=== PATIENT | female | born 1985 | race African-American/Black ===

== ENCOUNTER 2017-12-01 23:56 | Emergency (ER) | payer SELFPAY ==
[2017-12-01 23:57] VITALS: BP 134/81; PULSE 96; RESP 18; TEMP 36.3; O2SAT 96; BMI 29.0
[2017-12-02 00:09] VITALS: O2SAT 97
--- NOTE | 2017-12-02 00:14 | ED.VISSUMM ---
- ER Visit Summary Date of Service: 12/02/17 Chief Complaint: Shortness of breath History of Present Illness: The patient is a 32 F presenting with shortness of breath, wheezing. Patient has a history of asthma. She states she has been using her inhaler but has almost run out. She has had symptoms for the past 3 days. She has a productive cough. Denies fever. Denies sick contacts. She does not currently have a primary care physician. She does smoke. No other complaints. Physical Examination: Vitals are stable. Patient is afebrile. Alert no acute distress. HEENT exam is unremarkable. Neck is supple. Lungs are wheezing diffusely. No respiratory distress Heart is regular rate and rhythm. Abdomen is soft nontender nondistended. Extremities are unremarkable. Skin is warm and dry. Remainder of exam is unremarkable. Emergency Department Course and Treatment: Patient was given albuterol, Atrovent aerosols. She is given prednisone p.o. Chest x-ray shows no acute process. On repeat evaluation, her lungs are clear to auscultation. She is feeling improved. She is given an albuterol MDI and prescription for prednisone. She is given Dr. Mooney machine stone polisher apprentice for no doc for follow-up. She is advised to return to the ED for worsening complaints. Disposition: Discharge home Impression: Asthma exacerbation This note was generated with [employer] dictation software. It may contain incorrect words, spelling, and punctuation that were not noted in review of the chart prior to signing ED Disposition - Plan for ED Patient: Disposition: Home or Assisted Living Chief Complaint: Asthma Instructions: Understanding Asthma Prescriptions: Prednisone [Deltasone] 40 mg PO DAILY #10 tablet Referrals: Norma Mooney DO [NON-STAFF] - Care Physician,No Primary [Primary Care Provider] -
--- NOTE | 2017-12-02 00:15 | RAD_ITS ---
STUDY: X-RAY CHEST REASON FOR EXAM: Female, 32 years old. Wheezing TECHNIQUE: 1 view COMPARISON: None. FINDINGS: The lungs are clear and expanded. There is no demonstrated pleural abnormality. Normal size heart. Normal mediastinum and esau. Normal visualized pulmonary arteries. Normal visualized aortic arch and descending thoracic aorta. Normal visualized thoracic spine. Normal visualized ribs, clavicles, and shoulders. There is no demonstrated abnormality of the visualized soft tissue structures of the upper abdomen. RAD/Chest 1 View (Portable) IMPRESSION: Normal x-ray examination of the chest. No acute findings in the lungs Electronically Signed: Benito Romo, at 1:13 EDT Tel , Service support ,
[2017-12-02] MEDS: Ipratropium/Albuterol Sulfate 3 ML AMPUL.NEB INHALATION (00:22)
[2017-12-02 00:23] VITALS: PULSE 111; RESP 20
[2017-12-02] MEDS: Albuterol 2.5 MG/3 ML VIAL.NEB. INHALATION ×3 (00:23→00:43)
[2017-12-02] MEDS: predniSONE 20 MG Tablet 60 MG PO (01:06)
--- NOTE | 2017-12-02 01:25 | ED.DEP ---
ED Disposition - Plan for ED Patient: Chief Complaint: Asthma Instructions: Understanding Asthma Prescriptions: Prednisone [Deltasone] 40 mg PO DAILY #10 tablet Referrals: Care Physician,No Primary [Primary Care Provider] - Norma Mooney DO [NON-STAFF] -
[2017-12-02 01:28] VITALS: PULSE 101; RESP 22; O2SAT 99
== END 2017-12-02 01:32 | disposition home or self-care (01) ==
LOC: ED 12-02 00:56
PROVIDERS: Emergency Provider Emergency Medicine
DX: J45.901 Unspecified asthma with (acute) exacerbation (principal); Z72.0 Tobacco use
CPT/HCPCS: 71045; 94640; 99283

== ENCOUNTER 2018-03-15 20:46 | Emergency (ER) | payer MEDICAID, SELFPAY ==
[2018-03-15 20:48] VITALS: BP 97/63; PULSE 86; RESP 15; TEMP 36.8; O2SAT 97; BMI 31.2
[2018-03-15 21:53] LABS: Color, Urine Yellow (Yellow); Glucose, Dipstick Normal (Normal); Ketone-Dipstick Negative (Negative); Leukocyte Esterase-Dipstick 500 /ul (Negative); Mucous, Urine 0 SEEN /hpf (<or=2+); Nitrite-Dipstick Negative (Negative); Occult Blood-Urine 10 /ul (Negative); Protein-Dipstick 15 mg/dl (Negative); Red Blood Cells-Urine 0 SEEN /hpf (0-5); Urine Bilirubin Dipstick Negative (Negative); Urine Clarity Clear (Clear); Urine Urobilinogen Normal (Normal)
[2018-03-15 21:59] LABS: Squamous Epithelial Cells - UA 25-50 SEEN /hpf (5-10); White Blood Cells 10-25 SEEN /hpf (0-5)
[2018-03-15 22:00] LABS: Bacteria 1+ /hpf (None Seen)
[2018-03-15 22:04] LABS: Absolute Lymphocyte Count 2.75 X10^3/ul (0.83-4.51); Absolute Neutrophil Count 6.3 X10^3/uL (2.0-7.7); Basophil# 0.02 X10^3/uL; Basophil% 0.2 % (0-1); Eosinophil# 0.07 X10^3/uL; Eosinophils% 0.7 % (0-5); Hematocrit 32.7 % (37-47); Hemoglobin 11.2 g/dl (12.0-15.0); Lymphocyte # 2.75 X10^3/ul (4.0); Lymphocyte % 28.6 % (19-41); Mean Corp Hgb Conc 34.3 g/gl (32-36); Mean Corpuscular Hgb 29.1 pg (27.0-32.0); Mean Corpuscular Volume 84.9 fL (81-99); Mean Platelet Vol. 9.4 fl (6.2-12.0); Monocyte# 0.45 X10^3/uL; Monocyte% 4.7 % (0-10); Neutrophil # 6.32 X10^3/uL (2.7-7.7); Neutrophil % 65.7 % (47-70); POSITIVE COUNT NO; POSITIVE DIFFERENTIAL NO; POSITIVE MORPHOLOGY NO; Platelet Count 251 K/mm3 (150-450); RBC Distribution Width CV 14.5 % (11.6-14.6); RBC Distribution Width SD 45.1 fl (35.1-43.9); Red Blood Count 3.85 M/mm3 (4.2-5.4); White Blood Count 9.6 K/mm3 (4.4-11.0)
[2018-03-15 22:25] LABS: Anion Gap 9 (5-15); BUN 12 mg/dL (7-18); BUN/Creat Ratio 13.9 RATIO (10-20); Calcium,Total 8.4 mg/dL (8.5-10.1); Chloride 106 mmol/L (98-107); Creatinine, Serum 0.86 mg/dL (0.55-1.02); EST Glomerular Filtration Rate 80 mL/min (>60); Est Glom Filt Rate - Afr Amer 96 mL/min (>60); Estimated Creatinine Clearance 89.63 ml/min; Glucose 76 mg/dL (74-106); Potassium 3.7 mmol/L (3.5-5.1); Sodium Level 136 mmol/L (136-145)
--- NOTE | 2018-03-15 22:31 | ED.VISSUMM ---
- ER Visit Summary Date of Service: 03/15/18 Chief Complaint: Syncopal episodes History of Present Illness: The patient is a 32 F who is 19 weeks who presents for syncopal episodes over the last 6 days. Patient states 6 days ago she was walking in the heat and had a syncopal episode. 911 was called and she was evaluated but not transported. She is felt better since then and is been trying to drink plenty of fluids. Today while walking she became dizzy, again walking in the heat, but did not have an actual syncopal episode this time. She came into the emergency department for evaluation since it is happened twice in the last week. She has a dull intermittent headache for the last week. Currently is a 3 out of 10. Denies fever, vision changes, vertigo, chest pain, shortness of breath, abdominal pain, nausea or vomiting, weakness or paresthesias or other complaints. No medical problems other than current . Physical Examination: Vital signs: afebrile, blood pressure 97/63, no hypoxia on room air General: well nourished, well developed, in no distress Skin: warm, dry, no rash, no pallor HEENT: normocephalic and atraumatic; PERRL, EOMI, moist mucous membranes Cardiovascular: regular rate and rhythm without murmurs, no peripheral edema, 2+ pulses all distal extremities Respiratory: No increased work of breathing, lungs are clear to auscultation bilaterally, no rales, rhonchi or wheezing Abdominal: Abdomen is soft, nontender with normoactive bowel sounds, no guarding or rebound, no masses MSK: Moves all extremities, no deformities, normal strength Neuro: Awake and alert, oriented ?4. No facial droop, sensation and motor function intact and symmetric Test Results: Abnormal Lab Results 03/15/18 03/15/18 03/15/18 21:15 21:40 21:40 WBC 9.6 RBC 3.85 L Hgb 11.2 L Hct 32.7 L MCV 84.9 MCH 29.1 MCHC 34.3 RDW 14.5 RDW Differential 45.1 H Plt Count 251 MPV 9.4 Immature Gran % (Auto) 0.100 Neut % (Auto) 65.7 Lymph % (Auto) 28.6 Gilmer % (Auto) 4.7 Eos % (Auto) 0.7 Baso % (Auto) 0.2 Absolute Neuts (auto) 6.3 Absolute Lymphs (auto) 2.75 Total Counted Not Reportable Sodium 136 Potassium 3.7 Chloride 106 Carbon Dioxide 21.0 Anion Gap 9 BUN 12 Creatinine 0.86 Estim Creat Clear Calc 89.63 Est GFR (MDRD) Af Amer 96 Est GFR (MDRD) Non-Af 80 BUN/Creatinine Ratio 13.9 Glucose 76 Calcium 8.4 L Total Bilirubin 0.40 AST 21 ALT 15 Alkaline Phosphatase 60 Total Protein 6.7 Albumin 2.9 L Globulin 3.8 Albumin/Globulin Ratio 0.8 L Urine Color Yellow Urine Clarity Clear Urine pH 6.0 Ur Specific Harwood 1.020 Urine Protein 15 H Urine Glucose (UA) Normal Urine Ketones Negative Urine Occult Blood 10 H Urine Nitrite Negative Urine Bilirubin Negative Urine Urobilinogen Normal Ur Leukocyte Esterase 500 H Urine RBC 0 SEEN Urine WBC 10-25 SEEN Ur Squamous Epith Cells 25-50 SEEN Urine Bacteria 1+ Urine Mucus 0 SEEN Emergency Department Course and Treatment: Lab work was obtained to evaluate for electrolyte derangements, anemia, UTI, or any signs of hepatic or renal derangement. IV fluids were to be given, however the IV did not flow well. The patient did not wish an additional IV attempt, and thus using shared decision making, she opted for oral hydration while waiting for the remainder of her lab work. Patient had no electrolyte derangements, significant anemia or leukocytosis. Patient's urine was grossly contaminated and thus was not diagnostic of any infection or asymptomatic bacteriuria that would require treatment. Patient received oral hydration. On reevaluation she stated she felt very well and was ready for discharge. We discussed hydration and heat precautions. Patient will return if any further concerns. Discharged home. Treatment Plan: [] Disposition: [] Impression: Syncopal episode, second trimester , dehydration This note was generated with BlackJet dictation software. It may contain incorrect words, spelling, and punctuation that were not noted in review of the chart prior to signing ED Disposition - Plan for ED Patient: Disposition: Home or Assisted Living Chief Complaint: Dizziness Instructions: ED Dehydration, ED Fainting Unkn Cause Referrals: Lurdes Mcmahon MD [Primary Care Provider] - 1-2 Days if not improving Additional Instructions: Please stay out of the heat as much as possible. Drink plenty of fluids to stay hydrated. If you continue to have dizziness or if you pass out again, please return to the emergency department for another evaluation. If you have any worsening of your condition or any new concerning symptoms, please return immediately to the emergency department for another evaluation.
[2018-03-15 23:07] LABS: ALB/GLOB Ratio 0.8 RATIO (0.9-2.4); AST(SGOT) 21 U/L (15-37); Alanine Aminotransfer ALT/SGPT 15 U/L (13-56); Albumin, Serum 2.9 g/dL (3.2-5.0); Alkaline Phosphatase 60 U/L (45-117); Globulin 3.8 g/dL (2.2-4.2); Protein, Total 6.7 g/dL (6.4-8.2)
--- NOTE | 2018-03-15 23:30 | ED.DEP ---
ED Disposition - Plan for ED Patient: Disposition: Home or Assisted Living Chief Complaint: Dizziness Instructions: ED Fainting Unkn Cause, ED Dehydration Referrals: Lurdes Mcmahon MD [Primary Care Provider] - 1-2 Days if not improving Additional Instructions: Please stay out of the heat as much as possible. Drink plenty of fluids to stay hydrated. If you continue to have dizziness or if you pass out again, please return to the emergency department for another evaluation. If you have any worsening of your condition or any new concerning symptoms, please return immediately to the emergency department for another evaluation.
[2018-03-15 23:43] VITALS: BP 107/79; PULSE 77; PULSE 79; RESP 16; O2SAT 100
== END 2018-03-15 23:44 | disposition home or self-care (01) ==
PROVIDERS: Emergency Provider Emergency Medicine; Family Provider Obstetrics & Gynecology Gynecology; PCP Obstetrics & Gynecology Gynecology
DX: O99.89 Other specified diseases and conditions complicating pregnancy, childbirth and the puerperium (principal); R55 Syncope and collapse; E86.0 Dehydration; Z3A.19 19 weeks gestation of pregnancy
CPT/HCPCS: 80053; 81001; 85025; 99282; A4216

== ENCOUNTER 2018-04-19 17:20 | Emergency (ER) | payer MEDICAID, SELFPAY ==
[2018-04-19 17:21] VITALS: BP 116/67; PULSE 76; RESP 16; TEMP 36.7; O2SAT 98; BMI 30.2
[2018-04-19] MEDS: predniSONE 20 MG Tablet 40 MG PO (17:52)
[2018-04-19 18:27] VITALS: PULSE 86; RESP 18; O2SAT 97
[2018-04-19] MEDS: Albuterol 2.5 MG/3 ML VIAL.NEB. INHALATION (18:27)
[2018-04-19] MEDS: Ipratropium/Albuterol Sulfate 3 ML AMPUL.NEB INHALATION (18:27)
--- NOTE | 2018-04-19 18:46 | ED.DCSUM_ITS ---
- ER Visit Summary Date of Service: 04/19/18 Chief Complaint: [Dyspnea] History of Present Illness: The patient is a 32 F [presents the emergency department complaint of dyspnea that started about a week and a half ago. Patient states that she feels kind of congested in her face and sinuses. Patient is 5 months . Patient states she has been using her inhaler but not getting much relief and then her symptoms return. Patient coughing occasionally but very little coming up everything is clear. She has had no fever. She denies any chest pain. Patient does have a history of asthma.] Patient denies any abdominal pain. Patient feeling the baby move. Physical Examination: [HEENT-PERRLA, EOMI. Cranial nerves II through XII grossly intact. TMs clear. Mucous membranes moist. No adenopathy. Cardiovascular-regular rate and rhythm without murmur or ectopy Lungs-diminished breath sounds bilaterally. Patient has expiratory wheezes throughout all lung [place]. There is mild tachypnea. No accessory muscle use or retractions. No conversational dyspnea. Abdomen-normoactive bowel sounds, soft, nontender, no rebound or rigidity, no peritoneal signs. Extremities-intact ?4, normal range of motion, normal pulses, atraumatic] Test Results: [None indicated] Emergency Department Course and Treatment: [Patient was given a DuoNeb aerosol and was started on prednisone. Patient felt much improved after treatment. 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 Patient to return if increasing shortness of breath or condition should worsen anyway. Impression: [Asthma exacerbation] This note was generated with [employer] dictation software. It may contain incorrect words, spelling, and punctuation that were not noted in review of the chart prior to signing ED Disposition - Plan for ED Patient: Chief Complaint: Shortness of Breath Referrals: Care Physician,No Primary [Primary Care Provider] -
--- NOTE | 2018-04-19 18:46 | ED.DEP ---
ED Disposition - Plan for ED Patient: Chief Complaint: Shortness of Breath Instructions: ED Reactive Airway Disease Prescriptions: Prednisone [Deltasone] 20 mg PO BID #10 tab Referrals: Care Physician,No Primary [Primary Care Provider] - Lurdes Mcmahon MD [STAFF PHYSICIAN] - 3-5 Days
[2018-04-19 18:59] VITALS: BP 136/81; PULSE 95; RESP 18; O2SAT 100
== END 2018-04-19 19:05 | disposition home or self-care (01) ==
LOC: ED 17:40
PROVIDERS: Emergency Provider Emergency Medicine
DX: O99.519 Diseases of the respiratory system complicating pregnancy, unspecified trimester (principal); J45.901 Unspecified asthma with (acute) exacerbation; O99.330 Smoking (tobacco) complicating pregnancy, unspecified trimester; F17.200 Nicotine dependence, unspecified, uncomplicated; Z3A.00 Weeks of gestation of pregnancy not specified
CPT/HCPCS: 94640; 94664; 99282

== ENCOUNTER 2019-08-11 22:57 | Emergency (ER) | payer MEDICAID, SELFPAY ==
[2019-08-11 22:58] VITALS: BP 153/98; PULSE 101; RESP 18; TEMP 36.2; O2SAT 100; BMI 35.9
--- NOTE | 2019-08-11 23:04 | ED.DCSUM_ITS ---
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 She relapsed today for the first time in 1 year. She states she required Narcan once in the past. She does have history of hepatitis C. She states she is negative for HIV. She presently denies shortness of breath or difficulty breathing. She denies chest pain. She denies nausea or vomiting. Prior similar symptoms: Yes Recent Illness/Hospitalization: No - Past Medical History (1) Hepatitis C Status: Acute (2) IV drug user Status: Acute Past Medical History - Allergies and Home Meds Allergies/Adverse Reactions: Allergies aspirin Allergy (Verified 08/11/19 23:01) Swelling Penicillins Allergy (Verified 08/11/19 23:01) Swelling Primary Care Physician: Care Physician,No Primary [Primary Care Provider] - [facility] [STAFF PHYSICIAN] - As soon as possible Prior records reviewed: Yes Past Medical History: - - No history of SBE or HIV Surgical History: no surgical history Lives: Spouse/ Significant Other Smoking Status: Current every day smoker Alcohol: Rare Drugs: Heroin Review of Systems General: Denies: Chills, Fever, Malaise Eyes: Denies: Visual changes - bilaterally, Blurred Vision - bilaterally, Diplopia Cardiovascular: Reports: Palpitations, Heart racing. Denies: Chest pain Respiratory: Denies: Dyspnea, Cough, Sputum, Dyspnea on exertion Gastrointestinal: Denies: Abdominal pain, Nausea, Vomiting Musculoskeletal: Denies: Myalgias, Arthralgias, Neck pain, Back pain, Swelling, Extremity Pain Skin: Reports: Wounds - Injection site dorsum left hand ulnar side. Denies: Rash Neurological: Denies: Weakness, Parasthesia, Numbness Hematologic: Denies: Easy bruising, Easy bleeding Allergy: Denies: Uticaria, Swelling of the mouth Physical Exam Vital Signs/Narrative: Vital Signs Temp Pulse Resp BP Pulse Ox 08/11/19 22:58 97.1 F L 101 H 18 153/98 H 100 Inital Vital Signs reviewed: Yes General: Well nourished, Well developed, Obese, No Acute Distress Head: Normocephalic, Atraumatic Eyes: Perrl, EOMI. Negative for: Pale conjunctiva, Scleral icterus ENT: Moist mucous membranes, No rhinorrhea Neck: Supple, Nontender, No lymphadenopathy, No JVD Cardiovascular: Regular rhythm, No murmurs, Normal S1, Normal S2, Tachycardia Respiratory: No distress, CTA bilaterally, Chest nontender Abdomen: Soft, Nontender, Nondistended Extremities: Nontender, No edema Skin: Normal color, No rash, No Trauma. Negative for: Cyanosis, Diaphoresis, Jaundice Neurological: Alert, Oriented x3, Cranial nerves II-XII grossly intact, Normal S trength, Normal Sensation Psychological: Normal affect Diagnostic/Tx/Re-eval - Medical Decision Making Received intranasal Narcan 20 minutes prior to arrival. She is alert and presently. Will reassess in 30 minutes. If patient is still alert and oriented will discharge to home Patient remained awake and oriented.([id number]) ED Disposition - Plan for ED Patient: Disposition: Home or Assisted Living Diagnosis: Accidental heroin overdose, Respiratory arrest Instructions: OVERDOSE, Opiate Referrals: Care Physician,No Primary [Primary Care Provider] - [employer] [STAFF PHYSICIAN] - As soon as possible
[2019-08-11 23:44] VITALS: BP 144/92; PULSE 82; RESP 18; O2SAT 99
== END 2019-08-11 23:45 | disposition home or self-care (01) ==
LOC: ED 23:22
PROVIDERS: Emergency Provider Emergency Medicine
DX: T40.1X1A Poisoning by heroin, accidental (unintentional), initial encounter (principal); R09.2 Respiratory arrest; Y92.9 Unspecified place or not applicable; E66.9 Obesity, unspecified; B19.20 Unspecified viral hepatitis C without hepatic coma; F17.200 Nicotine dependence, unspecified, uncomplicated
CPT/HCPCS: 99284

== ENCOUNTER 2019-10-27 13:11 | Observation (INO) | payer MEDICAID, SELFPAY ==
[2019-10-27 13:11] VITALS: BP 127/78; PULSE 110; RESP 18; TEMP 36.4; O2SAT 98; BMI 28.1
[2019-10-27 13:28] VITALS: BP 119/75; PULSE 91; RESP 16; O2SAT 98
[2019-10-27] MEDS: Clindamycin HCl 150 MG Capsule 300 MG PO ×2 (14:08→23:32)
--- NOTE | 2019-10-27 14:11 | ED.VISSUMM ---
- ER Visit Summary Date of Service: 10/27/19 Chief Complaint: Requesting detox for IV heroin and fentanyl abuse Redness dorsum of right hand History of Present Illness: The patient is a 34 F history of IV drug abuse with both fentanyl and heroin. Patient is requesting detox. She also states that she has redness on the dorsum of her right hand. She does shoot up in her right hand. Physical Examination: Young female no acute distress vital signs stable afebrile. H EENT exam unremarkable. Neck nontender no lymphadenopathy. Lungs clear to auscultation bilaterally. Heart regular rhythm rate about 100 no murmur. Abdomen soft nontender normal bowel sounds no peritoneal signs. Extremities moves all 4. Neurovascular intact. Track cunha on the dorsum of both hands. Cellulitis on the dorsum of the right hand and right long finger. No sausage digit. Full flexion-extension. No tenosynovitis. No streaks. Neurologically she is awake alert with no focal motor deficits. Test Results: None Emergency Department Course and Treatment: Spoke to the hospitalist about admission for detox. Also patient started on oral clindamycin for cellulitis of the dorsum of her right hand. Treatment Plan: Admission for detox Disposition: Admission Impression: Requesting detox for IV heroin and fentanyl abuse Cellulitis right hand from IV drug abuse This note was generated with [employer] dictation software. It may contain incorrect words, spelling, and punctuation that were not noted in review of the chart prior to signing ED Disposition - Plan for ED Patient: Referrals: Care Physician,No Primary [Primary Care Provider] -
--- NOTE | 2019-10-27 14:30 | HP.PCM_ITS ---
<Lanre Washburn - Last Filed: 10/27/19 14:30> Problem List (1) Acute opioid withdrawal Status: Acute (2) Cellulitis Status: Acute History of Present Illness Date of Admission: 10/27/19 Chief Complaint: fentanyl withdrawal The patient is a 34 year old F with past medical history of 10 years of opiate abuse, nicotine abuse, who presents to the emergency room requesting help with detox from opiates. The patient uses 2.5 g of fentanyl daily. She also uses about 1 g of cocaine daily and an unclear amount of marijuana daily. Her last use of fentanyl was about 930 this morning. Current withdrawal symptoms include chills and anxiety. She denies musculoskeletal pain, runny eyes, runny nose, nausea, vomiting, diarrhea, sweating. She does have a raised red area on her second digit of the right hand. She is injecting into the right AC and right hand. The area where she has erythema is not an area where she injects however it is near to an area she injects. She has not had any drainage from it. She denies fevers or chills. No other erythematous areas or swollen injection sites. The patient is abused as opiates for 10 years. She last went through detox July 2018. This was at [facility]. She remained sober until July of this year at which time she relapsed, she cannot describe any inciting event. [] Past Medical History Past Medical History (Chronic Problems): Chronic Problems Opioid abuse (Chronic) Hepatitis C (Chronic) IV drug user (Chronic) Allergies aspirin Allergy (Verified 10/27/19 13:14) Swelling Penicillins Allergy (Verified 10/27/19 13:14) Swelling Home Medications: Ambulatory Orders Medication Instructions Recorded NK 08/11/19 Surgical History: no surgical history Lives: Alone Smoking Status: Current every day smoker Tobacco Use: Cigarettes Alcohol: None Drugs: Cocaine, Heroin, Marijuana Review of Systems Constitutional: Denies: Chills, Fever, Weight Change HEENT: Denies: Head Aches, Sinus Congestion, Sinus Drainage Cardiovascular: Denies: Chest Pain, Palpitations Respiratory: Denies: Cough, Shortness of breath at rest, Sputum production Gastrointestinal: Denies: Abdominal Pain, Nausea, Vomiting Genitourinary: Denies: Dysuria Musculoskeletal: Denies: Joint Pain, Joint Tenderness Skin: Reports: Skin Changes - cellulitis changes right hand dorsum 2nd digit no drainage. raised red painful area. Neurological: Denies: Numbness, Tingling, Focal weakness Psychiatric: Denies: Anxiety, Depression, Homicidal Ideations, Suicidal Ideations Hematologic/ Lymphatic: Denies: Easy Bruising, Easy Bleeding VTE Information - Inpt Only VTE Present on Admission: No VTE Mechan Device Prophylaxis: None VTE Pharm Prophylaxis ordered?: Yes Patient Problems: Active and Suspected Problems Cellulitis (Acute) Acute opioid withdrawal (Acute) - Physical Exam Vitals/I&O's: Vital Signs Temp Pulse Resp BP Pulse Ox 97.6 F L 91 16 119/75 98 10/27/19 13:11 10/27/19 13:28 10/27/19 13:28 10/27/19 13:28 10/27/19 13:28 Oxygen Delivery Method Room Air Weight: 180 lb Body Mass Index (BMI) 28.1 General: Alert, Oriented x3, Cooperative HEENT: Atraumatic, PERRLA, EOMI, Normocephalic Neck: Supple, No JVD, Negative Carotid Bruits Lungs: Clear to auscultation, Normal air movement Cardiovascular: Regular rate, No murmurs Abdomen: Bowel Sounds Present, Soft, Non Tender Extremities: No edema, Capillary Refill Less than 3 Seconds Skin: - - cellulitis changes right hand dorsum 2nd digit no drainage. raised red painful area. multiple track cunha right arm up to right AC. Musculoskeletal: No Tenderness to Palpation of Joints or Extremities Neurological: Cranial nerves II-XII grossly intact Psych/Mental Status: Anxious, Alert and oriented to time, place, person, mood and affect Assessment/Plan All Active Problems Cellulitis (Acute) Acute opioid withdrawal (Acute) 1. Acute opiate withdrawal - initiate subutex taper, consult to 180 program. 2. Cellulitis right hand - continue clinda. check CBC/BMP. 3. Polysubstance abuse - also abuses cocaine 1 g daily and marijuana. Check tox screen. 4. Nicotine abuse - smokes 1/2 ppd DVT ppx: early ambulation This patient was seen by Lanre Washburn PA-C under the supervision of Dr. Hollis. <Adelina Hollis E - Last Filed: 10/27/19 14:47> History of Present Illness The patient is a 34 year old F [] Past Medical History Allergies aspirin Allergy (Verified 10/27/19 13:14) Swelling Penicillins Allergy (Verified 10/27/19 13:14) Swelling - Physical Exam Vitals/I&O's: Vital Signs Temp Pulse Resp BP Pulse Ox 97.8 F 83 17 116/68 97 10/27/19 14:38 10/27/19 14:38 10/27/19 14:38 10/27/19 14:38 10/27/19 14:38 Oxygen Delivery Method Room Air Weight: 180 lb Body Mass Index (BMI) 28.1 Assessment/Plan Hospitalist note: I am seeing this patient in conjunction with Lanre Washburn. I independently seen and examined the patient. History and physical above reviewed and I concur with above admission treatment plan. Patient presented to the emergency room requesting admission for medical stabilization due to acute opiate withdrawal. She had a 10-year history of opioid abuse, has been using IV fentanyl and cocaine and also she smokes marijuana daily. She mentioned that she underwent detoxification on July, and she remained clean for 1 year and relapsed with July 2019. She has been using IV fentanyl and cocaine every day over the last 3 to 4 months along with smoking marijuana. Her main presenting symptoms today are anxiety, associated with chills and not feeling well. She denied muscle pains or aches, denied nausea or vomiting. She denied abdominal cramps, constipation or diarrhea. She denied runny nose or eyes. She has been injecting drugs into her right elbow and right hand. She does have swelling and erythema on the right middle finger as well as dorsum of the right hand with injection cunha. She denies fever chills. In the emergency department, her vital signs are stable except heart rate of around 100. She has been afebrile. No blood work done at the emergency department. She is being admitted for acute opioid withdrawal for medical stabilization as well as mild cellulitis of the right hand and right middle finger. - Physical Exam General: Alert, Oriented x3, Cooperative, No apparent distress. HEENT: Atraumatic, PERRLA, EOMI. Neck: Supple, No JVD, Negative Carotid Bruits, Trachea Midline, Thyroid Normal. Lungs: Clear to auscultation, Normal air movement, No rhonchi, No wheeze, No rales. Cardiovascular: Regular rate, Regular Rhythm, Normal S1, Normal S2, PMI Normal. Abdomen: Bowel Sounds Present, Soft, Non Tender, Non-Distended, No Hepato- splenomegaly. Extremities: No clubbing, No cyanosis, No edema. Right hand: Injection cunha on the dorsum of the right hand with erythema and swelling, erythema and swelling of the right middle finger. No fluctuation. Skin: No rashes, No breakdown. Neurological: Cranial nerves are intact, neuro grossly intact Vital Signs are stable. Assessment and plan: #1 acute opioid withdrawal: Being admitted for medical stabilization. Plan: Admit to [facility] floor, CBC, CMP, urine drug screen, blood alcohol level, serum test, initiate acute opiate withdrawal protocol with tapering course of Subutex, PRN Catapres, Bentyl, gabapentin, Vistaril, methocarbamol, Zofran and trazodone. #2 mild cellulitis of the dorsum of the right hand/right middle finger: With injection cunha. Patient received 1 dose of clindamycin p.o. in the ED. Plan for clindamycin p.o. 300 mg 3 times daily, bacitracin ointment topically 3 times daily. #3 other chronic medical problems: Stable, continue current medications as above. This note was generated with [employer] dictation software. It may contain incorrect words, spelling, and punctuation that were not noted in checking the note before signing. Inpatient E&M: 19721 Init Hosp L2
[2019-10-27 14:38] VITALS: BP 116/68; PULSE 83; RESP 17; TEMP 36.6; O2SAT 97
--- NOTE | 2019-10-27 15:04 | CM.ED ---
SOCIAL WORK PATIENT ADMITTED FOR MEDICAL WITHDRAWAL MANAGEMENT. CALL TO ONE [facility] OFFICE AIDE, DARNELL PACKER TO UPDATE ON PATIENT'S ADMISSION. NO ANSWER, LEFT MESSAGE. 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
[2019-10-27 15:25] VITALS: BMI 31.8
[2019-10-27 15:33] VITALS: BMI 31.9
[2019-10-27 15:55] VITALS: BP 114/71; PULSE 77; RESP 14; TEMP 37; O2SAT 100
[2019-10-27 17:58] LABS: Absolute Lymphocyte Count 1.96 X10^3/uL (0.83-4.51); Basophil# 0.03 X10^3/uL; Basophil% 0.4 % (0-1); Eosinophils% 1.3 % (0-5); Hemoglobin 10.9 g/dL (12.0-15.0); Lymphocyte # 1.96 X10^3/ul (4.0); Lymphocyte % 24.8 % (19-41); Mean Corp Hgb Conc 32.1 g/dL (32-36); Mean Corpuscular Hgb 26.7 pg (27.0-32.0); Mean Corpuscular Volume 83.3 fL (81-99); Mean Platelet Vol. 9.1 fl (6.2-12.0); Monocyte# 0.79 X10^3/uL; NRBC Flagged by Analyzer 0 % (0-5); Neutrophil # 4.99 X10^3/uL (2.7-7.7); Neutrophil % 63.2 % (47-70); Platelet Count 310 K/mm3 (150-450); RBC Distribution Width CV 12.4 % (11.6-14.6); RBC Distribution Width SD 37.4 fl (35.1-43.9); Red Blood Count 4.08 M/mm3 (4.2-5.4); White Blood Count 7.9 K/mm3 (4.4-11.0)
[2019-10-27 18:16] LABS: ALB/GLOB Ratio 0.7 RATIO (0.9-2.4); AST(SGOT) 18 U/L (15-37); Alanine Aminotransfer ALT/SGPT 19 U/L (13-56); Alkaline Phosphatase 62 U/L (45-117); Anion Gap 6 (5-15); BUN 13 mg/dL (7-18); BUN/Creat Ratio 13.5 RATIO (10-20); Calcium,Total 8.6 mg/dL (8.5-10.1); Chloride 104 mmol/L (98-107); Creatinine, Serum 0.96 mg/dL (0.55-1.02); EST Glomerular Filtration Rate 69 mL/min (>60); Est Glom Filt Rate - Afr Amer 84 mL/min (>60); Estimated Creatinine Clearance 78.78 ml/min; Globulin 4.4 g/dL (2.2-4.2); Glucose 125 mg/dL (74-106); Potassium 3.5 mmol/L (3.5-5.1); Protein, Total 7.4 g/dL (6.4-8.2); Sodium Level 138 mmol/L (136-145)
[2019-10-27 18:22] LABS: Internal QC Validated? YES +Cl - CLEAR BKGD
[2019-10-27 18:23] LABS: Pregnancy, Serum, hCG Quali. NEGATIVE Negative
[2019-10-27 18:36] LABS: Alcohol, Blood (Medical)-Serum < 3.0 mg/dL
[2019-10-27 18:59] VITALS: BP 111/58; PULSE 95; RESP 14; TEMP 36.9; O2SAT 95
[2019-10-27] MEDS: BACITRACIN 15 GM Tube 1 APPLIC TOPICAL (23:34)
[2019-10-27 23:35] VITALS: BP 129/68; PULSE 76; RESP 18; TEMP 37; O2SAT 95
[2019-10-28 00:08] LABS: Amphetamine Urine VISTA NEGATIVE (<1000 ng/mL); Barbiturate Urine VISTA NEGATIVE (< 200 ng/mL); Benzodiazepine Urine VISTA NEGATIVE (< 200 ng/mL); Cocaine Urine VISTA POSITIVE (< 300 ng/mL); Ecstacy Urine VISTA NEGATIVE (< 500 ng/mL); Methadone Urine VISTA NEGATIVE (< 300 ng/mL); PCP Urine VISTA NEGATIVE (< 25 ng/mL); THC Urine VISTA POSITIVE (< 50 ng/mL); Vista UDS pH Range 6
[2019-10-28] MEDS: Clindamycin HCl 150 MG Capsule 300 MG PO ×3 (05:07→21:57)
[2019-10-28] MEDS: BACITRACIN 15 GM Tube 1 APPLIC TOPICAL ×3 (06:31→21:58)
[2019-10-28 08:31] VITALS: BP 127/86; PULSE 69; RESP 16; TEMP 36.8; O2SAT 96
[2019-10-28 13:44] VITALS: BP 111/78; PULSE 64; RESP 16; TEMP 36.7; O2SAT 96
--- NOTE | 2019-10-28 13:53 | PCM.PN.HOSP ---
<Lanre Washburn - Last Filed: 10/28/19 13:53> Patient Problems: Active and Suspected Problems Cellulitis (Acute) Acute opioid withdrawal (Acute) Reason for Visit: opiate withdrawal Subjective: Overnight the patient had no complaints of withdrawal symptoms, and at the time of my interview had no withdrawal symptoms. She did not meet nursing withdrawal criteria to begin taking subutex, so she has not received this at all yet. She is lying in bed left side NAD with no complaints. Vitals/I&O's: Vital Signs Temp Pulse Resp BP Pulse Ox 98.0 F 64 16 111/78 96 10/28/19 13:44 10/28/19 13:44 10/28/19 13:44 10/28/19 13:44 10/28/19 13:44 Oxygen Delivery Method Room Air Weight: 203 lb 7.787 oz Body Mass Index (BMI) 31.8 Intake and Output for Last 24 Hours 10/26/19 10/27/19 10/28/19 23:59 23:59 23:59 Intake Total 400 / 400 Balance 400 / 400 General: Alert, Oriented x3, Cooperative HEENT: Atraumatic, PERRLA, EOMI, Normocephalic Neck: Supple, No JVD, Negative Carotid Bruits Lungs: Clear to auscultation, Normal air movement Cardiovascular: Regular rate, No murmurs Abdomen: Bowel Sounds Present, Soft, Non Tender Extremities: No edema, Capillary Refill Less than 3 Seconds Skin: No rashes, No breakdown Musculoskeletal: No Tenderness to Palpation of Joints or Extremities Neurological: Cranial nerves II-XII grossly intact Psych/Mental Status: Normal Affect, Appropriate, Alert and oriented to time, place, person, mood and affect Laboratory Results 10/27/19 17:45: WBC 7.9, RBC 4.08 L, Hgb 10.9 L, Hct 34.0 L, MCV 83.3, MCH 26.7 L, MCHC 32.1, RDW Std Deviation 37.4, RDW Coeff of Fred 12.4, Plt Count 310, MPV 9.1, Immature Gran % (Auto) 0.300, Neut % (Auto) 63.2, Lymph % (Auto) 24.8, [place] % (Auto) 10.0, Eos % (Auto) 1.3, Baso % (Auto) 0.4, Absolute Neuts (auto) 5.0, Absolute Lymphs (auto) 1.96, Nucleated RBC % 0 10/27/19 17:45: Sodium 138, Potassium 3.5, Chloride 104, Carbon Dioxide 28.0, Anion Gap 6, BUN 13, Creatinine 0.96, Estim Creat Clear Calc 78.78, Est GFR (MDRD) Af Amer 84, Est GFR (MDRD) Non-Af 69, BUN/Creatinine Ratio 13.5, Glucose 125 H, Calcium 8.6, Total Bilirubin 0.40, AST 18, ALT 19, Alkaline Phosphatase 62, Total Protein 7.4, Albumin 3.0 L, Globulin 4.4 H, Albumin/Globulin Ratio 0.7 L 10/27/19 17:45: Ethyl Alcohol < 3.0 10/27/19 17:45: Serum , Qual NEGATIVE 10/27/19 23:45: Urine Opiates Screen POSITIVE H, Urine Methadone Screen NEGATIVE, Ur Barbiturates Screen NEGATIVE, Ur Phencyclidine Scrn NEGATIVE, Ur Amphetamines Screen NEGATIVE, U Methamphetamin-MDMA NEGATIVE, U Benzodiazepines Scrn NEGATIVE, Urine Cocaine Screen POSITIVE H, U Cannabinoids Screen POSITIVE H, Ur Drug Screen Comment Current Medications Acetaminophen (Tylenol) 500 mg PO Q4H PRN PRN PRN Reason: Temp > 100.4 F Bacitracin (Bacitracin Ointment) 1 applic TOPICAL TID [facility]; Protocol Last Admin: 10/28/19 06:31 Dose: 1 applicatio Documented by: Buprenorphine HCl (Buprenorphine Hcl) 0 mg SL Q8H [facility]; Taper Stop: 10/30/19 14:29 Clindamycin HCl (Cleocin) 300 mg PO TID [facility] Last Admin: 10/28/19 05:07 Dose: 300 mg Documented by: Clonidine (Catapres) 0.1 mg PO Q8H PRN PRN PRN Reason: RESTLESSNESS Dicyclomine HCl (Bentyl) 20 mg PO Q6H PRN PRN PRN Reason: Abdominal Discomfort Gabapentin (Neurontin) 300 mg PO Q8H PRN PRN PRN Reason: moderate to severe anxiety Hydroxyzine Pamoate (Vistaril Pamoate Capsule) 50 mg PO Q6H PRN PRN PRN Reason: mild anxiety Loperamide HCl (Imodium) 2 mg PO Q4H PRN PRN PRN Reason: LOOSE STOOLS Methocarbamol (Methocarbamol) 1,500 mg PO Q6H PRN PRN PRN Reason: MUSCLE SPASM Nicotine (Nicoderm Cq (Pbkc)) 14 mg TRANSDERM. DAILY [facility] Last Admin: 10/27/19 16:55 Dose: 14 mg Documented by: Ondansetron HCl (Zofran) 8 mg PO Q8H PRN PRN PRN Reason: NAUSEA Trazodone HCl (Desyrel) 100 mg PO QHS PRN PRN PRN Reason: INSOMNIA STROKE Vital Signs/Narrative: Vital Signs Temp Pulse Resp BP Pulse Ox 10/28/19 13:44 98.0 F 64 16 111/78 96 Medical Necessity - Tobacco Use Smoking Status: Current every day smoker Tobacco Use: Cigarettes Assessment/Plan All Active Problems Cellulitis (Acute) Acute opioid withdrawal (Acute) 1. Acute opiate withdrawal - initiate subutex taper once patient meets withdrawal criteria, referral to 180 program. Tox screen showed opiates, cannabis, cocaine. 2. Cellulitis right hand - continue clinda. No fever/leukocytosis. 3. Polysubstance abuse - also abuses cocaine 1 g daily and marijuana. 4. Nicotine abuse - smokes 1/2 ppd DVT ppx: early ambulation This patient was seen by Lanre Washburn PA-C under the supervision of Dr. Dunn <Susanna Dunn - Last Filed: 10/28/19 15:01> Vitals/I&O's: Vital Signs Temp Pulse Resp BP Pulse Ox 98.0 F 64 16 111/78 96 10/28/19 13:44 10/28/19 13:44 10/28/19 13:44 10/28/19 13:44 10/28/19 13:44 Oxygen Delivery Method Room Air Weight: 92.3 kg Body Mass Index (BMI) 31.8 Intake and Output for Last 24 Hours 10/26/19 10/27/19 10/28/19 23:59 23:59 23:59 Intake Total 900 / 900 Balance 900 / 900 Laboratory Results 10/27/19 17:45: WBC 7.9, RBC 4.08 L, Hgb 10.9 L, Hct 34.0 L, MCV 83.3, MCH 26.7 L, MCHC 32.1, RDW Std Deviation 37.4, RDW Coeff of Fred 12.4, Plt Count 310, MPV 9.1, Immature Gran % (Auto) 0.300, Neut % (Auto) 63.2, Lymph % (Auto) 24.8, [place] % (Auto) 10.0, Eos % (Auto) 1.3, Baso % (Auto) 0.4, Absolute Neuts (auto) 5.0, Absolute Lymphs (auto) 1.96, Nucleated RBC % 0 10/27/19 17:45: Sodium 138, Potassium 3.5, Chloride 104, Carbon Dioxide 28.0, Anion Gap 6, BUN 13, Creatinine 0.96, Estim Creat Clear Calc 78.78, Est GFR (MDRD) Af Amer 84, Est GFR (MDRD) Non-Af 69, BUN/Creatinine Ratio 13.5, Glucose 125 H, Calcium 8.6, Total Bilirubin 0.40, AST 18, ALT 19, Alkaline Phosphatase 62, Total Protein 7.4, Albumin 3.0 L, Globulin 4.4 H, Albumin/Globulin Ratio 0.7 L 10/27/19 17:45: Ethyl Alcohol < 3.0 10/27/19 17:45: Serum , Qual NEGATIVE 10/27/19 23:45: Urine Opiates Screen POSITIVE H, Urine Methadone Screen NEGATIVE, Ur Barbiturates Screen NEGATIVE, Ur Phencyclidine Scrn NEGATIVE, Ur Amphetamines Screen NEGATIVE, U Methamphetamin-MDMA NEGATIVE, U Benzodiazepines Scrn NEGATIVE, Urine Cocaine Screen POSITIVE H, U Cannabinoids Screen POSITIVE H, Ur Drug Screen Comment Current Medications Acetaminophen (Tylenol) 500 mg PO Q4H PRN PRN PRN Reason: Temp > 100.4 F Bacitracin (Bacitracin Ointment) 1 applic TOPICAL TID [facility]; Protocol Last Admin: 10/28/19 13:49 Dose: 1 applicatio Documented by: Buprenorphine HCl (Buprenorphine Hcl) 0 mg SL Q8H [facility]; Taper Stop: 10/30/19 14:29 Clindamycin HCl (Cleocin) 300 mg PO TID [facility] Last Admin: 10/28/19 13:49 Dose: 300 mg Documented by: Clonidine (Catapres) 0.1 mg PO Q8H PRN PRN PRN Reason: RESTLESSNESS Dicyclomine HCl (Bentyl) 20 mg PO Q6H PRN PRN PRN Reason: Abdominal Discomfort Gabapentin (Neurontin) 300 mg PO Q8H PRN PRN PRN Reason: moderate to severe anxiety Hydroxyzine Pamoate (Vistaril Pamoate Capsule) 50 mg PO Q6H PRN PRN PRN Reason: mild anxiety Loperamide HCl (Imodium) 2 mg PO Q4H PRN PRN PRN Reason: LOOSE STOOLS Methocarbamol (Methocarbamol) 1,500 mg PO Q6H PRN PRN PRN Reason: MUSCLE SPASM Nicotine (Nicoderm Cq (Pbkc)) 14 mg TRANSDERM. DAILY [facility] Last Admin: 10/28/19 13:49 Dose: 14 mg Documented by: Ondansetron HCl (Zofran) 8 mg PO Q8H PRN PRN PRN Reason: NAUSEA Trazodone HCl (Desyrel) 100 mg PO QHS PRN PRN PRN Reason: INSOMNIA STROKE Vital Signs/Narrative: Vital Signs Temp Pulse Resp BP Pulse Ox 10/28/19 13:44 98.0 F 64 16 111/78 96 Assessment/Plan This patient was seen in conjunction with BREANNE Dean. I have independently interviewed and examined the patient and reviewed pertinent historical, laboratory, and other data. Please refer to BREANNE Dean note for his patient's presentation, findings, and recommendations. I have reviewed and his note and concur with his documentation Patient was seen and examined. No acute events overnight. Physical Exam: Gen: Comfortable, not pale, not jaundiced CVS:HS I +II, regular, no murmurs RESP: CTA GI: BS present and normal, soft, nontender, no palpable organs EXT:Cellulitis of right hand dorsum, 2nd digit, raised painful area, multiple needle track cunha ASSESSMENT: 1. Acute opiate withdrawal 2. Cellulitis, right hand 3. Polysubstance use 4. Nicotine dependence Plan: Continue to monitor acute opiate withdrawal symptoms and treat per protocol Continue on clindamycin Inpatient E&M: [id number] [facility] L[facility]
[2019-10-28 17:25] VITALS: BP 115/80; PULSE 74; RESP 18; TEMP 36.9; O2SAT 96
[2019-10-28 21:46] VITALS: BP 135/78; PULSE 66; RESP 16; TEMP 36.9; O2SAT 96
[2019-10-29 03:45] VITALS: BP 135/82; PULSE 59; RESP 16; TEMP 36.6; O2SAT 95
[2019-10-29] MEDS: BACITRACIN 15 GM Tube 1 APPLIC TOPICAL (06:48)
[2019-10-29] MEDS: Clindamycin HCl 150 MG Capsule 300 MG PO (06:48)
--- NOTE | 2019-10-29 07:31 | NURSING ---
during bedside shift report, checked this nurse checked the zip ties. one zip tie on the bottom tote was put on backwards and removable. Removed the zip tie, reapplied and tightened it.
[2019-10-29 08:26] VITALS: BP 128/88; PULSE 63; RESP 12; TEMP 36.9; O2SAT 97
[2019-10-29 08:27] VITALS: PULSE 60
--- NOTE | 2019-10-29 10:38 | DCINST_ITS ---
- Discharge Diagnoses Current Active Problems: Current Active and Chronic Problems Cellulitis (Acute) Acute opioid withdrawal (Acute) Opioid abuse (Chronic) You will use the following diet at home:: No restrictions Your food should be the consistency of: Regular Your liquids should be the consistency of: Regular/Thin Discharge Activity: Return to Normal Activity Allergies/Adverse Reactions: Allergies aspirin Allergy (Verified 10/27/19 13:14) Swelling Penicillins Allergy (Verified 10/27/19 13:14) Swelling Medications to take at Discharge Clindamycin [Cleocin] 300 mg PO TID #15 cap 10/29/19 The following prescriptions were given: Clindamycin [Cleocin] 300 mg PO TID #15 cap Transmission Status: Pending to [facility] [facility] Primary Care Physician: Care Physician,No Primary [Primary Care Provider] - Please follow up with your Primary Care Physician in: 1-2 weeks Test Results: Test results from this visit will be discussed in further detail at your follow- up appointment, if applicable. Please Follow Up With: 180 program When: 10/30/2019 Proposed Discharge Date: 10/29/19
--- NOTE | 2019-10-29 11:07 | DS.PCM_ITS ---
<Lanre Washburn - Last Filed: 10/29/19 11:07> Discharge Date and Diagnosis Date of Admission: 10/27/19 Date of Discharge: 10/29/19 - Primary Discharge Diagnosis Active and Suspected Problems Cellulitis right 3rd finger Acute opioid withdrawal (Acute) Polysubstance - also cocaine, marijuana Nicotine abuse - Secondary Discharge Diagnosis Chronic Problems Opioid abuse (Chronic) Hepatitis C (Chronic) IV drug user (Chronic) Hospital Course and Treatment Operations: None Procedures: None Summary of Care Provided: Hospital Course: The patient is a 34 year old F with pmhx of opiatel, cocaine, marijuana, nicotine abuse who presented to the ER with request for opiate detox. She was injecting approximately 2.5 g fentanyl daily into her right arm and hand, using 1 g cocaine daily, and some marijuana. Tox screen showed opiates, marijuana, and cocaine. Her w/d symptoms were mild only with anxiety and cold flashes. She was admitted and placed on the subutex protocol. She had cellulitis of the right 3rd digit and was started on oral clinda. She did not meet withdrawal criteria to begin the taper. The following day she had no symptoms of withdrawal at all. The finger responded well to clinda. She continued to not have withdrawal symptoms and asked to be discharged home. We were agreeable. She was given an Rx to finish a total of 7 days of clinda for cellulitis. She was instructed to follow up with 180 tomorrow, and with a PCP in 1-2 weeks. She was discharged home in stable condition. This patient was seen by Lanre Washburn PA-C under the supervision of Dr. Dunn. [] - Physical Exam Vitals/I&O's: Vital Signs Temp Pulse Resp BP Pulse Ox 98.5 F 60 12 128/88 H 97 10/29/19 08:26 10/29/19 08:27 10/29/19 08:26 10/29/19 08:26 10/29/19 08:26 Oxygen Delivery Method Room Air Weight: 203 lb 7.787 oz Body Mass Index (BMI) 31.8 Intake and Output for Last 24 Hours 10/27/19 10/28/19 10/29/19 23:59 23:59 23:59 Intake Total 900 / 900 Balance 900 / 900 General: Alert, Oriented x3, Cooperative HEENT: Atraumatic, PERRLA, EOMI, Normocephalic Neck: Supple, No JVD, Negative Carotid Bruits Lungs: Clear to auscultation, Normal air movement Cardiovascular: Regular rate, No murmurs Abdomen: Bowel Sounds Present, Soft, Non Tender Extremities: No edema, Capillary Refill Less than 3 Seconds Skin: No rashes, No breakdown, - - cellulitis resolving.no lymphangitis, drainage or collection Musculoskeletal: No Tenderness to Palpation of Joints or Extremities Neurological: Cranial nerves II-XII grossly intact Psych/Mental Status: Normal Affect, Appropriate Current Medications Acetaminophen (Tylenol) 500 mg PO Q4H PRN PRN PRN Reason: Temp > 100.4 F Bacitracin (Bacitracin Ointment) 1 applic TOPICAL TID [facility]; Protocol Last Admin: 10/29/19 06:48 Dose: 1 applicatio Documented by: Buprenorphine HCl (Buprenorphine Hcl) 0 mg SL Q8H [facility]; Taper Stop: 10/30/19 14:29 Clindamycin HCl (Cleocin) 300 mg PO TID [facility] Last Admin: 10/29/19 06:48 Dose: 300 mg Documented by: Clonidine (Catapres) 0.1 mg PO Q8H PRN PRN PRN Reason: RESTLESSNESS Dicyclomine HCl (Bentyl) 20 mg PO Q6H PRN PRN PRN Reason: Abdominal Discomfort Gabapentin (Neurontin) 300 mg PO Q8H PRN PRN PRN Reason: moderate to severe anxiety Hydroxyzine Pamoate (Vistaril Pamoate Capsule) 50 mg PO Q6H PRN PRN PRN Reason: mild anxiety Loperamide HCl (Imodium) 2 mg PO Q4H PRN PRN PRN Reason: LOOSE STOOLS Methocarbamol (Methocarbamol) 1,500 mg PO Q6H PRN PRN PRN Reason: MUSCLE SPASM Nicotine (Nicoderm Cq (Pbkc)) 14 mg TRANSDERM. DAILY [facility] Last Admin: 10/28/19 13:49 Dose: 14 mg Documented by: Ondansetron HCl (Zofran) 8 mg PO Q8H PRN PRN PRN Reason: NAUSEA Trazodone HCl (Desyrel) 100 mg PO QHS PRN PRN PRN Reason: INSOMNIA Discharge Diet: No Restrictions Discharge Activity: Return to Normal Activity Home Medications: Medications to take at Discharge Clindamycin [Cleocin] 300 mg PO TID #15 cap 10/29/19 Following Prescrptions Were Given to Patient: Clindamycin [Cleocin] 300 mg PO TID #15 cap Transmission Status: Received by [facility] [facility] Primary Care Physician: Care Physician,No Primary [Primary Care Provider] - Please follow up with your Primary Care Physician in: 1-2 weeks Please Follow Up With: 180 program When: 10/30/2019 Disposition: Home Minutes spent on discharge:: 35 Patient Condition:: Stable Medical Necessity - Tobacco Use Smoking Status: Current every day smoker Tobacco Use: Cigarettes Meaningful Use Info Meaningful Use Diagnoses (Choose all that apply): None applicable <Paintsil,Girdwood - Last Filed: 10/29/19 12:35> Discharge Date and Diagnosis - Secondary Discharge Diagnosis Chronic Problems Opioid abuse (Chronic) Hepatitis C (Chronic) IV drug user (Chronic) Hospital Course and Treatment Summary of Care Provided: This patient was seen in conjunction with BREANNE Dean. I have independently interviewed and examined the patient and reviewed pertinent historical, laboratory, and other data. Please refer to BREANNE Dean note for his patient's presentation, findings, and recommendations. I have reviewed and his note and concur with his documentation 34 y/o female with PMHx of polysubstance use who comes in for medical stabilization. She uses IV fentanyl, cocaine and marijuana. She however did not have any overt/active withdrawal symptoms with CIWA scores of 0. Patient received antibiotics for right hand cellulitis. She was discharged home to [facility] w-up with 180 in the outpatient. Physical Exam: Gen: Comfortable, not pale, not jaundiced CVS:HS I +II, regular, no murmurs RESP: CTA GI: BS present and normal, soft, nontender, no palpable organs EXT:Cellulitis of right hand dorsum, 2nd digit, raised painful area, multiple needle track cunha - Physical Exam Vitals/I&O's: Vital Signs Temp Pulse Resp BP Pulse Ox 98.5 F 60 12 128/88 H 97 10/29/19 08:26 10/29/19 08:27 10/29/19 08:26 10/29/19 08:26 10/29/19 08:26 Oxygen Delivery Method Room Air Weight: 92.3 kg Body Mass Index (BMI) 31.8 Intake and Output for Last 24 Hours 10/27/19 10/28/19 10/29/19 23:59 23:59 23:59 Intake Total 900 / 900 Balance 900 / 900 Inpatient E&M: [id number] [facility] Hosp
== END 2019-10-29 11:37 | disposition home or self-care (01) | DRG 773 ==
LOC: ED 13:55 → PCU 14:57
PROVIDERS: Admitting Provider Hospitalist; Emergency Provider Emergency Medicine; Visit Provider Internal Medicine
DX: F11.23 Opioid dependence with withdrawal (principal); L03.011 Cellulitis of right finger; L03.113 Cellulitis of right upper limb; F12.90 Cannabis use, unspecified, uncomplicated; F14.10 Cocaine abuse, uncomplicated; F17.210 Nicotine dependence, cigarettes, uncomplicated; B18.2 Chronic viral hepatitis C
CPT/HCPCS: 36415; 80053; 80307; 80320; 84703; 85025; 99218; 99283; 99406; H0012; G0378; G0480

== ENCOUNTER → 2020-01-10 14:48 | Outpatient (CLI) | payer MEDICAID, SELFPAY ==
[2020-01-10 14:08] VITALS: BMI 31.8
[2020-01-10 14:50] LABS: Bacteria 0 SEEN /hpf (None Seen); Mucous, Urine 0 SEEN /hpf (<or=2+); Red Blood Cells-Urine 0 SEEN /hpf (0-5)
[2020-01-10 16:54] LABS: Color, Urine Yellow (Yellow); Glucose, Dipstick Normal (Normal); Ketone-Dipstick 5 mg/dl (Negative); Leukocyte Esterase-Dipstick 100 /ul (Negative); Nitrite-Dipstick Negative (Negative); Occult Blood-Urine Negative /ul (Negative); Protein-Dipstick Negative (Negative); Urine Bilirubin Dipstick Negative (Negative); Urine Clarity Clear (Clear); Urine Urobilinogen Normal (Normal)
[2020-01-10 17:07] LABS: Squamous Epithelial Cells - UA 0-5 SEEN /hpf (5-10); White Blood Cells 0-5 SEEN /hpf (0-5)
[2020-01-10 17:08] LABS: Absolute Lymphocyte Count 2.92 X10^3/uL (0.83-4.51); Absolute Neutrophil Count 3.6 X10^3/uL (2.0-7.7); Basophil# 0.04 X10^3/uL; Basophil% 0.6 % (0-1); Eosinophil# 0.08 X10^3/uL; Eosinophils% 1.1 % (0-5); Hematocrit 39.3 % (37-47); Hemoglobin 12.5 g/dL (12.0-15.0); Lymphocyte # 2.92 X10^3/ul (4.0); Lymphocyte % 40.7 % (19-41); Mean Corp Hgb Conc 31.8 g/dL (32-36); Mean Corpuscular Hgb 27.9 pg (27.0-32.0); Mean Corpuscular Volume 87.7 fL (81-99); Monocyte# 0.54 X10^3/uL; Monocyte% 7.5 % (0-10); NRBC Flagged by Analyzer 0 % (0-5); Neutrophil # 3.58 X10^3/uL (2.7-7.7); Platelet Count 278 K/mm3 (150-450); RBC Distribution Width CV 13.9 % (11.6-14.6); RBC Distribution Width SD 44.7 fl (35.1-43.9); Red Blood Count 4.48 M/mm3 (4.2-5.4); White Blood Count 7.2 K/mm3 (4.4-11.0)
[2020-01-10 17:27] LABS: ALB/GLOB Ratio 0.9 RATIO (0.9-2.4); AST(SGOT) 10 U/L (15-37); Alanine Aminotransfer ALT/SGPT 13 U/L (13-56); Albumin, Serum 3.6 g/dL (3.2-5.0); Alkaline Phosphatase 78 U/L (45-117); Anion Gap 2 (5-15); BUN 14 mg/dL (7-18); BUN/Creat Ratio 15.2 RATIO (10-20); Calcium,Total 8.7 mg/dL (8.5-10.1); Chloride 109 mmol/L (98-107); Creatinine, Serum 0.92 mg/dL (0.55-1.02); EST Glomerular Filtration Rate 73 mL/min (>60); Est Glom Filt Rate - Afr Amer 88 mL/min (>60); Globulin 4.2 g/dL (2.2-4.2); Glucose 88 mg/dL (74-106); Potassium 4.2 mmol/L (3.5-5.1); Protein, Total 7.8 g/dL (6.4-8.2); Sodium Level 140 mmol/L (136-145)
[2020-01-11 14:53] LABS: Hepatitis B Surface Antigen Non-Reactive (Nonreactive)
== END ==
PROVIDERS: PCP Internal Medicine; Referring Provider Internal Medicine; Visit Provider Internal Medicine
DX: R10.9 Unspecified abdominal pain (principal); B19.20 Unspecified viral hepatitis C without hepatic coma; F19.90 Other psychoactive substance use, unspecified, uncomplicated
CPT/HCPCS: 36415; 80053; 81001; 85025; 87340; 87521

== ENCOUNTER 2020-03-21 08:29 | Emergency (ER) | payer MEDICAID, SELFPAY ==
[2020-01-10 14:08] VITALS: BMI 31.8
[2020-03-21 08:31] VITALS: BP 119/69; PULSE 64; RESP 17; TEMP 35.8; O2SAT 100; BMI 33.6
[2020-03-21] MEDS: Ketorolac 30 MG/ML Syringe IM (08:44)
--- NOTE | 2020-03-21 08:45 | ED.DCSUM_ITS ---
History of Present Illness Chief Complaint: Upper Extremity Injury Informant: Patient Onset: Days Context: Gradual Onset Timing: Continuous Current Severity: Moderate Maximum Severity: Moderate Narrative: Patient is a 34-year-old female with past history significant for opiate dependence who has been sober for almost 6 months presents to the emergency department with atraumatic right shoulder pain. Patient states she had a remote right shoulder injury. She states over the past 3 days, she is had more pain in the shoulder. She states she is also had pain in her upper back. She denies chest pain or shortness of breath. She denies any pleuritic component to the pain. She is not had fever. She states today, she was trying to lift her son. 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 She is not taken anything to help the symptoms. Prior similar symptoms: Yes Recent Illness/Hospitalization: No Past Medical History - Allergies and Home Meds Allergies/Adverse Reactions: Allergies aspirin Allergy (Verified 03/21/20 08:31) Swelling Penicillins Allergy (Verified 03/21/20 08:31) Swelling Primary Care Physician: rKistina Morris MD [Primary Care Provider] - Prior records reviewed: Yes Past Medical History: None Surgical History: no surgical history Smoking Status: Current every day smoker Review of Systems General: Denies: Chills, Fever, Sweats Eyes: Denies: Visual changes - bilaterally, Diplopia ENT: Denies: Rhinorrhea, Sore throat Cardiovascular: Denies: Chest pain, Palpitations Respiratory: Denies: Dyspnea, Cough, Dyspnea on exertion Gastrointestinal: Denies: Abdominal pain, Nausea, Vomiting, Diarrhea, Melena, Hematochezia Genitourinary: Denies: Dysuria, Hematuria, Frequency Musculoskeletal: Denies: Back pain, Extremity Pain Skin: Denies: Rash, Wounds Neurological: Denies: Headache, Weakness, Numbness Physical Exam Vital Signs/Narrative: Vital Signs Temp Pulse Resp BP Pulse Ox 03/21/20 08:31 96.4 F L 64 17 119/69 100 Inital Vital Signs reviewed: Yes General: Well nourished, Well developed, No Acute Distress Head: Normocephalic, Atraumatic Eyes: Perrl, EOMI ENT: Moist mucous membranes, No rhinorrhea Neck: Supple, Nontender Cardiovascular: Regular rate, Regular rhythm, No murmurs Respiratory: No distress, CTA bilaterally, Chest nontender Abdomen: Soft, Nontender, Nondistended, Normal bowel sounds Back: Nontender, Normal Inspection Extremities: No edema, Tenderness - Patient has mild tenderness over the shoulder. There is tenderness in the rhomboid musculature. When she tries to AB duct the shoulder, she pulls with her upper back muscles rather than the rotator cuff itself. Pulses are normal. Axillary nerve is preserved. Skin: Normal color, No rash Neurological: Alert, Oriented x3, Cranial nerves II-XII grossly intact, Normal Strength, Normal Sensation Psychological: Normal affect, Normal Mood Diagnostic/Tx/Re-eval Clinical Impression(s) from Imaging Studies Shoulder X-Ray 03/21/20 08:49 IMPRESSION: Normal x-ray examination of the shoulder. Electronically Signed: William Tye, at 9:25 EDT , Service support , - Medical Decision Making Patient presents with right shoulder pain and pain in her upper back. When attempting to move her shoulder, she uses trapezius and rhomboid musculature. My suspicion is that she has underlying rotator cuff strain and is now compensating with back musculature. Plain films were obtained of the shoulder. There is no evidence of fracture dislocation. She is neurovascularly intact. Patient was placed in a sling for comfort while up and about, but I did personal financial counselor her on range of motion exercises. She will be treated with anti-inflammatories and antispasmodics and given outpatient orthopedic follow-up. Impression 1. Right rotator cuff strain ED Disposition - Plan for ED Patient: Instructions: ED Shoulder Sprain Prescriptions: cycloBENZAPRine HCl [Flexeril] 10 mg PO TID PRN #20 tab PRN Reason: Muscle Spasm Prescription Printed Naproxen [Naprosyn] 500 mg PO BID PRN #20 tab Prescription Printed Referrals: Adan Carney DO [STAFF PHYSICIAN] -
--- NOTE | 2020-03-21 08:49 | RAD_ITS ---
STUDY: X-RAY - RIGHT SHOULDER REASON FOR EXAM: Female, 34 years old. Right shoulder pain and back pain that has gotten worse the last 3 days. No known injury. TECHNIQUE: 4 view(s) of the shoulder. COMPARISON: None. FINDINGS: Normal glenohumeral articulation. Normal acromioclavicular joint. Normal acromion. Normal humeral head and visualized proximal humerus. The soft tissue structures are unremarkable. Normal visualized pulmonary apex. RAD/Shoulder min 2 Views IMPRESSION: Normal x-ray examination of the shoulder. Electronically Signed: William Gamble, at 9:25 EDT , Service support ,
[2020-03-21] MEDS: cycloBENZAPRine HCl 10 MG Tablet PO (09:06)
[2020-03-21 09:50] VITALS: RESP 16
--- NOTE | 2020-03-21 09:52 | ED.RN ---
REVIEWED D/C INSTRUCTIONS, FOLLOW UP CARE, PRESCRIPTION, AND S/S THAT WOULD WARRANT A RETURN TO THE ED WITH PT. PT VERBALIZED AN UNDERSTANDING AND DENIES FURTHER QUESTIONS FOR THIS RN. PT SKIN WARM/DRY, PT A&O X 3, RESP EVEN AND UNLABORED, NO DISTRESS NOTED. PT AMBULATED OUT OF ED, GAIT STEADY.
== END 2020-03-21 09:54 | disposition home or self-care (01) ==
LOC: ED 09:11
PROVIDERS: Emergency Provider Emergency Medicine; PCP Internal Medicine
DX: S46.011A Strain of muscle(s) and tendon(s) of the rotator cuff of right shoulder, initial encounter (principal); X50.9XXA Other and unspecified overexertion or strenuous movements or postures, initial encounter; Y93.9 Activity, unspecified; Y92.9 Unspecified place or not applicable; F17.200 Nicotine dependence, unspecified, uncomplicated
CPT/HCPCS: 73030; 96372; 99283

== ENCOUNTER 2020-03-31 11:01 | Emergency (ER) | payer MEDICAID, SELFPAY ==
[2020-03-31 11:02] VITALS: BP 146/99; PULSE 82; RESP 16; TEMP 36.4; O2SAT 97; BMI 34.4
--- NOTE | 2020-03-31 12:22 | ED.DCSUM_ITS ---
History of Present Illness <Ross Billings - Last Filed: 03/31/20 16:26> Informant: Patient Narrative: 34-year-old female presenting with left lower quadrant pain. She states it has been getting worse over the last 24 hours. She has associated symptoms of nausea and vomiting. Had a fever. She denies urinary or vaginal complaints. No history of kidney stones. She has no surgeries in her abdomen previously. She does not believe she is . <Trever Roach - Last Filed: 04/01/20 09:45> Chief Complaint: Abd Pain - Past Medical History (1) Acute opioid withdrawal Status: Chronic (2) Hepatitis C Status: Chronic <Trever Roach - Last Filed: 04/01/20 09:45> Past Medical History <Ross Billings - Last Filed: 03/31/20 16:26> Prior records reviewed: No Surgical History: no surgical history Lives: Spouse/ Significant Other Smoking Status: Current every day smoker Alcohol: None Drugs: None <Trever Roach - Last Filed: 04/01/20 09:45> - Allergies and Home Meds Allergies/Adverse Reactions: Allergies aspirin Allergy (Verified 03/31/20 11:02) Swelling Penicillins Allergy (Verified 03/31/20 11:02) Swelling Primary Care Physician: Ajith Goodson MD [STAFF PHYSICIAN] - 1 Week if not improving Review of Systems General: Denies: Chills, Fever, Sweats Eyes: Denies: Visual changes - bilaterally, Diplopia ENT: Denies: Rhinorrhea, Sore throat Cardiovascular: Denies: Chest pain, Palpitations Respiratory: Denies: Dyspnea, Cough, Dyspnea on exertion Gastrointestinal: Reports: Abdominal pain, Nausea, Vomiting. Denies: Diarrhea, Constipation Genitourinary: Denies: Dysuria, Hematuria Musculoskeletal: Denies: Myalgias, Arthralgias Skin: Denies: Rash, Abscess Neurological: Denies: Headache, Weakness <Trever Roach - Last Filed: 04/01/20 09:45> Physical Exam Vital Signs/Narrative: Vital Signs Temp Pulse Resp BP Pulse Ox 03/31/20 11:02 97.5 F L 82 16 146/99 H 97 Inital Vital Signs reviewed: Yes General: Well nourished, No Acute Distress Head: Normocephalic, Atraumatic Eyes: Perrl, EOMI. Negative for: Scleral icterus ENT: Moist mucous membranes. Negative for: No rhinorrhea Cardiovascular: Regular rate, Regular rhythm Respiratory: No distress, CTA bilaterally Abdomen: Soft, Nondistended, Tender - Tenderness to palpation left lower quadrant. Skin: Normal color, No rash. Negative for: Cyanosis, Diaphoresis Neurological: Alert, Oriented x3 Psychological: Normal affect, Normal Mood <Trever Roach - Last Filed: 04/01/20 09:45> Diagnostic/Tx/Re-eval - Medical Decision Making Patient turned over to me from the initiating physician Dr. Conner Roach. Patient's labs were basically unremarkable. test was negative. UA was negative. On her CAT scan there was free fluid in the pelvis for that reason Dr. Roach ordered a pelvic ultrasound which showed a left ovarian cyst most likely hemorrhagic cyst. I discussed test results with the patient. Repeat exam at 1626 PM she is doing well. She has mild tenderness in her left lower quadrant. None in the right lower quadrant. No peritoneal signs. She did not anything currently for pain. She will follow-up as an outpatient with her BROOM MACHINE OPERATOR Dr. Ajith Goodson. Impression: Acute left lower quadrant pelvic and abdominal pain secondary to ruptured left ovarian cyst Motrin for pain. Follow-up with her BROOM MACHINE OPERATOR. <Ross Billings - Last Filed: 03/31/20 16:26> Clinical Impression(s) from Imaging Studies Abdomen/Pelvis CT 03/31/20 12:25 IMPRESSION: 1. Intermediate to hyperdense pelvic free fluid suggesting hemoperitoneum. Recommend pelvic ultrasound. Surgical consultation also suggested. 2. No CT evidence of appendicitis or diverticulitis. Electronically Signed: Clem Garcia MD ([place]) at 13:50 EDT , Service support , Laboratory Data 03/31/20 03/31/20 03/31/20 11:48 11:48 12:45 WBC 6.7 RBC 4.39 Hgb 12.6 Hct 38.5 MCV 87.7 MCH 28.7 MCHC 32.7 RDW Std Deviation 39.3 RDW Coeff of Fred 12.2 Plt Count 237 MPV 9.8 Immature Gran % (Auto) 0.300 Neut % (Auto) 74.9 H Lymph % (Auto) 19.8 [place] % (Auto) 4.3 Eos % (Auto) 0.4 Baso % (Auto) 0.3 Absolute Neuts (auto) 5.0 Absolute Lymphs (auto) 1.33 Nucleated RBC % 0 Sodium Potassium Chloride Carbon Dioxide Anion Gap BUN Creatinine Estim Creat Clear Calc Est GFR (MDRD) Af Amer Est GFR (MDRD) Non-Af BUN/Creatinine Ratio Glucose Calcium Total Bilirubin Direct Bilirubin AST ALT Alkaline Phosphatase Total Protein Albumin Globulin Albumin/Globulin Ratio Urine Color Yellow Urine Clarity Clear Urine pH 6.0 Ur Specific [place] 1.020 Urine Protein 30 H Urine Glucose (UA) Normal Urine Ketones 5 H Urine Occult Blood 250 H Urine Nitrite Negative Urine Bilirubin Negative Urine Urobilinogen 1 H Ur Leukocyte Esterase 25 H Urine RBC > 100 SEEN Urine WBC 0-5 SEEN Ur Squamous Epith Cells 0-5 SEEN Urine Bacteria 1+ Urine Mucus 0 SEEN Urine Test Negative 03/31/20 12:45 WBC RBC Hgb Hct MCV MCH MCHC RDW Std Deviation RDW Coeff of Fred Plt Count MPV Immature Gran % (Auto) Neut % (Auto) Lymph % (Auto) [place] % (Auto) Eos % (Auto) Baso % (Auto) Absolute Neuts (auto) Absolute Lymphs (auto) Nucleated RBC % Sodium 139 Potassium 4.5 Chloride 108 H Carbon Dioxide 26.0 Anion Gap 5 BUN 17 Creatinine 0.86 Estim Creat Clear Calc 87.94 Est GFR (MDRD) Af Amer 96 Est GFR (MDRD) Non-Af 79 BUN/Creatinine Ratio 19.8 Glucose 78 Calcium 8.7 Total Bilirubin 0.70 Direct Bilirubin 0.17 AST 22 ALT 33 Alkaline Phosphatase 62 Total Protein 7.3 Albumin 3.9 Globulin 3.4 Albumin/Globulin Ratio 1.1 Urine Color Urine Clarity Urine pH Ur Specific [place] Urine Protein Urine Glucose (UA) Urine Ketones Urine Occult Blood Urine Nitrite Urine Bilirubin Urine Urobilinogen Ur Leukocyte Esterase Urine RBC Urine WBC Ur Squamous Epith Cells Urine Bacteria Urine Mucus Urine Test - Medical Decision Making She was seen and evaluated on arrival for left lower quadrant pain. She is focally tender in this area. No history of kidney stones. She had no urinary complaints. Patient had blood work drawn she is unremarkable. She does have a small amount of blood in her urine. Patient went over for CT abdomen pelvis with IV contrast however her IV infiltrated and at this point they did a noncontrast study which showed concern for hemoperitoneum which I suspect is due to ruptured ovarian cyst. Patient's hemoglobin is stable. Her pain was controlled with 1 dose of morphine. I will order transvaginal ultrasound although the senior radiation protection technician needs to be called in. Patient will be signed out to incoming ED physician for follow-up on ultrasound and ultimate disposition. <Trever Roach - Last Filed: 04/01/20 09:45> ED Disposition <Ross Billings - Last Filed: 03/31/20 16:26> <Trever Roach - Last Filed: 04/01/20 09:45> - Plan for ED Patient: Disposition: Home or Assisted Living Instructions: ED Cyst Ovarian Referrals: Ajith Goodson MD [STAFF PHYSICIAN] - 1 Week if not improving Additional Instructions: You have a ruptured cyst on your left ovary. This should progressively improve. Your body absorb the fluid. Motrin or Advil and/or Tylenol for pain. Follow-up with your BROOM MACHINE OPERATOR if not improving. Return to the emergency department if feeling a lot worse.
--- NOTE | 2020-03-31 12:25 | CT_ITS ---
STUDY: CT ABDOMEN AND PELVIS WITH CONTRAST REASON FOR EXAM: Female, 34 years old. LLQ PAIN, IV INFILTRATED DURING INJECTION, CONCERN FOR DIVERTICULITIS RADIATION DOSAGE (If Supplied By Facility): CTDIvol = ( 14.27 ) mGy, DLP = ( 845.13 ) mGycm TECHNIQUE: Transaxial images were obtained from the dome of the diaphragm to the symphysis pubis without oral contrast. IV 100mL Isovue-300 was administered. Sagittal and coronal images were reconstructed. Individualized dose optimization techniques were used for this CT. COMPARISON: None. FINDINGS: The visualized lung bases are unremarkable. The visualized portions of the heart are within normal limits. Normal liver. There are multiple gallstones. Normal spleen. Normal pancreas. Normal bilateral adrenal glands. Normal right kidney. Normal left kidney. Normal visualized stomach. Normal small intestine. Normal colon. The appendix is visualized and appears normal. Normal abdominal aorta. Normal inferior vena cava. Normal retroperitoneum. Normal urinary bladder. There is fluid within the endometrial canal. Intermediate to slightly hyperdense fluid in the dependent portion of the pelvis suggesting hemoperitoneum. Limited visualization of the adnexal structures. Rounded soft tissue nodule in the right buttock may represent injection sites or sequela of prior injury. Normal osseous structures. CT/Abdomen/Pelvis W IV Cont ONLY IMPRESSION: 1. Intermediate to hyperdense pelvic free fluid suggesting hemoperitoneum. Recommend pelvic ultrasound. Surgical consultation also suggested. 2. No CT evidence of appendicitis or diverticulitis. Electronically Signed: Clem Garcia MD ([place]) at 13:50 EDT , Service support ,
[2020-03-31 12:34] LABS: Mucous, Urine 0 SEEN /hpf (<or=2+)
[2020-03-31 12:44] LABS: Color, Urine Yellow (Yellow); Glucose, Dipstick Normal (Normal); Ketone-Dipstick 5 mg/dl (Negative); Leukocyte Esterase-Dipstick 25 /ul (Negative); Nitrite-Dipstick Negative (Negative); Occult Blood-Urine 250 /ul (Negative); Protein-Dipstick 30 mg/dl (Negative); Urine Bilirubin Dipstick Negative (Negative); Urine Clarity Clear (Clear); Urine Urobilinogen 1 mg/dl (Normal)
[2020-03-31 12:46] LABS: Internal QC Validated? YES +Cl - CLEAR BKGD; Pregnancy, Urine Negative Negative
[2020-03-31] MEDS: Ondansetron 4 MG/2 ML Vial IV (12:48)
[2020-03-31] MEDS: 0.9% Normal Saline 1,000 ML 1000 ML IV (12:48)
[2020-03-31] MEDS: Morphine 4 MG/ML Syringe IV (12:49)
[2020-03-31 12:52] LABS: Bacteria 1+ /hpf (None Seen); Red Blood Cells-Urine > 100 SEEN /hpf (0-5); Squamous Epithelial Cells - UA 0-5 SEEN /hpf (5-10); White Blood Cells 0-5 SEEN /hpf (0-5)
[2020-03-31 13:07] LABS: ALB/GLOB Ratio 1.1 RATIO (0.9-2.4); AST(SGOT) 22 U/L (15-37); Alanine Aminotransfer ALT/SGPT 33 U/L (13-56); Albumin, Serum 3.9 g/dL (3.2-5.0); Alkaline Phosphatase 62 U/L (45-117); Anion Gap 5 (5-15); BUN 17 mg/dL (7-18); BUN/Creat Ratio 19.8 RATIO (10-20); Bilirubin, Direct 0.17 mg/dL (0.00-0.30); Calcium,Total 8.7 mg/dL (8.5-10.1); Chloride 108 mmol/L (98-107); Creatinine, Serum 0.86 mg/dL (0.55-1.02); EST Glomerular Filtration Rate 79 mL/min (>60); Est Glom Filt Rate - Afr Amer 96 mL/min (>60); Estimated Creatinine Clearance 87.94 ml/min; Globulin 3.4 g/dL (2.2-4.2); Glucose 78 mg/dL (74-106); Potassium 4.5 mmol/L (3.5-5.1); Protein, Total 7.3 g/dL (6.4-8.2); Sodium Level 139 mmol/L (136-145)
[2020-03-31 13:44] LABS: Absolute Lymphocyte Count 1.33 X10^3/uL (0.83-4.51); Basophil# 0.02 X10^3/uL; Basophil% 0.3 % (0-1); Eosinophil# 0.03 X10^3/uL; Eosinophils% 0.4 % (0-5); Hematocrit 38.5 % (37-47); Hemoglobin 12.6 g/dL (12.0-15.0); Lymphocyte # 1.33 X10^3/ul (4.0); Lymphocyte % 19.8 % (19-41); Mean Corp Hgb Conc 32.7 g/dL (32-36); Mean Corpuscular Hgb 28.7 pg (27.0-32.0); Mean Corpuscular Volume 87.7 fL (81-99); Mean Platelet Vol. 9.8 fl (6.2-12.0); Monocyte# 0.29 X10^3/uL; Monocyte% 4.3 % (0-10); NRBC Flagged by Analyzer 0 % (0-5); Neutrophil # 5.03 X10^3/uL (2.7-7.7); Neutrophil % 74.9 % (47-70); Platelet Count 237 K/mm3 (150-450); RBC Distribution Width CV 12.2 % (11.6-14.6); RBC Distribution Width SD 39.3 fl (35.1-43.9); Red Blood Count 4.39 M/mm3 (4.2-5.4); White Blood Count 6.7 K/mm3 (4.4-11.0)
--- NOTE | 2020-03-31 13:55 | US_ITS ---
STUDY: ULTRASOUND OF THE FEMALE PELVIS - COMPLETE REASON FOR EXAM: Female, 34 years old. LLQ PAIN AND BLEEDING LMP: TECHNIQUE: Transabdominal and Transvaginal TECHNICAL QUALITY: Adequate. COMPARISON: None. FINDINGS: The uterus is anteverted and is in a midline position. The uterus measures 9.8 x 7.1 x 5.0 cm. Normal uterine cervix. The endometrium measures 13 mm in thickness, and is hyperechoic. There is no demonstrated endometrial mass. There is no demonstrated myometrial mass. I.U.D. - The patient does not have an I.U.D. The right ovary is visualized. The right ovary measures 3.0 x 2.5 x 1.6 cm. There is no right ovarian cyst or ovarian mass. There is no visualized right adnexal mass or complex lesion. There is normal arterial and normal venous vascularity. The left ovary is visualized. The left ovary measures 4.5 x 3.7 x 3.3 cm. There is a complex solid structure of the left adnexa measuring 4.5 x 4.5 x 5.0 cm. There are small ovarian follicles identified. There is normal arterial and normal venous vascularity. There is a moderate amount of fluid (mildly complex in the cul-de-sac. US/Transvaginal Non- IMPRESSION: 1. 4.5 x 4.5 x 5.0 cm heterogeneous mass of the left adnexa without vascular flow. [facility] reports negative test. Moderate hemoperitoneum. It may represent a ruptured hemorrhagic cyst, however, ectopic cannot be excluded. Electronically Signed: Clem Garcia MD ([place]) at 15:29 EDT , Service support ,
--- NOTE | 2020-03-31 16:29 | DCINST.ED_ITS ---
ED Disposition - Plan for ED Patient: Disposition: Home or Assisted Living Instructions: ED Cyst Ovarian Referrals: Ajith Goodson MD [STAFF PHYSICIAN] - 1 Week if not improving Additional Instructions: You have a ruptured cyst on your left ovary. This should progressively improve. Your body absorb the fluid. Motrin or Advil and/or Tylenol for pain. Follow-up with your SALON RECEPTIONIST if not improving. Return to the emergency department if feeling a lot worse.
[2020-03-31 16:34] VITALS: BP 138/74; PULSE 85; RESP 14; O2SAT 98
== END 2020-03-31 16:36 | disposition home or self-care (01) ==
PROVIDERS: Student in an Organized Health Care Education/Training Program; Emergency Provider Emergency Medicine; PCP Internal Medicine
DX: N83.202 Unspecified ovarian cyst, left side (principal); F17.200 Nicotine dependence, unspecified, uncomplicated
CPT/HCPCS: 74177; 76830; 80053; 80076; 81001; 81025; 85025; 93976; 96361; 96374; 96375; 99283; J7030; Q9967; A4216; J2405

== ENCOUNTER 2020-10-04 01:24 | Emergency (ER) | payer MEDICAID, SELFPAY ==
[2020-10-04 01:24] VITALS: BP 163/86; PULSE 133; RESP 18; TEMP 36.7; O2SAT 98
[2020-10-04 01:26] VITALS: BP 163/86; PULSE 133; RESP 18; TEMP 36.7; O2SAT 98; BMI 32.9
[2020-10-04 02:01] LABS: Color, Urine Yellow (Yellow); Glucose, Dipstick Normal (Normal); Ketone-Dipstick Negative (Negative); Leukocyte Esterase-Dipstick 500 /ul (Negative); Mucous, Urine 0 SEEN /hpf (<or=2+); Nitrite-Dipstick Negative (Negative); Occult Blood-Urine 10 /ul (Negative); Protein-Dipstick 30 mg/dl (Negative); Urine Bilirubin Dipstick Negative (Negative); Urine Clarity Clear (Clear); Urine Urobilinogen Normal (Normal); Urine pH 6.5 (5.0 - 8.0)
--- NOTE | 2020-10-04 02:03 | ED.DCSUM_ITS ---
History of Present Illness Chief Complaint: Abd Pain Informant: Patient Onset: Weeks Context: Gradual Onset Current Severity: Moderate Maximum Severity: Moderate Narrative: Patient presents with some lower abdominal cramping and brown discharge. She states that she was in skilled nursing for the past 30 days. While there she was given an antibiotic which she believes was Macrobid for a presumed UTI. Patient states symptoms have not improved at all. She is concerned that she has an STD. - Past Medical History (1) Ovarian cyst Status: Resolved (2) Hepatitis C Status: Chronic Past Medical History - Allergies and Home Meds Allergies/Adverse Reactions: Allergies aspirin Allergy (Verified 03/31/20 11:02) Swelling Penicillins Allergy (Verified 03/31/20 11:02) Swelling Primary Care Physician: Ajith Goodson MD [STAFF PHYSICIAN] - As Needed Surgical History: no surgical history Smoking Status: Current every day smoker Review of Systems General: Denies: Chills, Fever Eyes: Denies: Visual changes - bilaterally ENT: Denies: Bilateral ear pain Cardiovascular: Denies: Chest pain Respiratory: Denies: Dyspnea, Cough Gastrointestinal: Reports: Abdominal pain. Denies: Vomiting, Diarrhea Genitourinary: Reports: - - Vaginal discharge and odor. Denies: Dysuria Musculoskeletal: Denies: Swelling, Extremity Pain Skin: Denies: Rash Neurological: Denies: Headache Hematologic: Denies: Easy bruising Allergy: Denies: Uticaria Physical Exam Vital Signs/Narrative: Vital Signs Temp Pulse Resp BP Pulse Ox 10/04/20 01:26 98.0 F 133 H 18 163/86 H 98 10/04/20 01:24 98.0 F 133 H 18 163/86 H 98 Inital Vital Signs reviewed: Yes General: Well nourished, Well developed Head: Normocephalic ENT: Moist mucous membranes Neck: Supple Cardiovascular: Regular rate, Regular rhythm Respiratory: No distress, CTA bilaterally Abdomen: Soft, Nontender, Normal bowel sounds : - - No external perineal lesions. White/yun discharge noted on speculum exam. No masses palpable on bimanual exam. Extremities: Nontender Skin: Normal color Neurological: Alert, Oriented x3 Psychological: Normal affect Diagnostic/Tx/Re-eval - Medical Decision Making Patient be treated with Flagyl for bacterial vaginosis. This will also cover trichomoniasis. Patient's urine was sent for gonorrhea and chlamydia. If this returns positive she was seen by phone call and correct antibiotics will be prescribed. She voices understanding and agreement. ED Disposition - Plan for ED Patient: Disposition: Home or Assisted Living Instructions: ED Bacterial Vaginosis (BV) Prescriptions: metroNIDAZOLE [Flagyl] 500 mg PO BID #14 tablet Transmission Status: Sent to [facility] Referrals: Ajith Goodson MD [STAFF PHYSICIAN] - As Needed
[2020-10-04 02:07] LABS: Bacteria RARE /hpf (None Seen); Internal QC Validated? YES +Cl - CLEAR BKGD; Pregnancy, Urine Negative Negative; Red Blood Cells-Urine 5-10 SEEN /hpf (0-5); Squamous Epithelial Cells - UA 0-5 SEEN /hpf (5-10); White Blood Cells 0-5 SEEN /hpf (0-5)
[2020-10-04] MEDS: metroNIDAZOLE 500 MG Tablet PO (02:08)
[2020-10-04 03:47] LABS: Chlamydia Trachomatis by PCR Negative (Negative); Neisserai gonorrhoeae by PCR Negative (Negative); Probe Check PASS; Sample Adequacy Control PASS; Specimen Processing Control PASS
== END 2020-10-04 02:11 | disposition home or self-care (01) ==
PROVIDERS: Emergency Provider Emergency Medicine; PCP Internal Medicine
DX: N76.0 Acute vaginitis (principal); F17.210 Nicotine dependence, cigarettes, uncomplicated; Z88.0 Allergy status to penicillin; B18.2 Chronic viral hepatitis C
CPT/HCPCS: 81001; 81025; 87491; 87591; 99283

== ENCOUNTER 2021-04-29 05:40 | Emergency (ER) | payer SELFPAY ==
[2021-04-29 05:41] VITALS: BP 133/81; PULSE 85; RESP 18; TEMP 36.2; O2SAT 96; BMI 35.0
[2021-04-29] MEDS: Ondansetron ODT 4 MG Tablet PO (06:05)
--- NOTE | 2021-04-29 06:19 | EDS_ITS ---
HPI History of Present Illness Chief Complaint: Overdose Narrative Narrative: Patient states she does was released out of halfway yesterday. She brought what she thought was cocaine to her sister's house. She does not know what time she showed up there. She does not know what time she did drugs. Her sister does not recall either. Apparently EMS was called because they were minimally responsive. Patient states she has not done any other drugs. Patient states she thought this today and was told it was cocaine but is concerned it might have been heroin or fentanyl. Patient has history of opioid abuse and previously detoxed. Other than some nausea she feels otherwise well. [facility] Medical History Cocaine abuse Substance abuse Allergy/AdvReac Type Severity Reaction Status Date / Time aspirin Allergy Swelling Verified 03/31/20 11:02 Penicillins Allergy Swelling Verified 03/31/20 11:02 Family History Mother Multiple sclerosis Father Asthma Colon cancer Brother Alcoholism Social History Smoking Status: Current every day smoker tobacco type: cigarettes ROS ROS ED Constitutional Constitutional ED: Denies chills, fever(s) or sweats Eyes Eyes: Denies blurry vision or change in vision ENT ENT ED: Denies ear pain, rhinorrhea or sore throat Cardiovascular Cardiovascular: Denies chest pain, palpitations or racing heartbeat Respiratory/Chest Respiratory/Chest: Denies cough, dyspnea or sputum Gastrointestinal Gastrointestinal: Denies abdominal pain, constipation, diarrhea or vomiting Genitourinary Genitourinary ED: Denies dysuria, hematuria or urinary frequency Musculoskeletal Musculoskeletal: Denies arthralgias, myalgias or neck pain Integumentary Denies abscess, Abrasions or rash Neurologic Neurologic: Denies headache(s), paresthesias or weakness Psychiatric Psychiatric: Denies anxiety, depression, suicidal ideation or suicidal thoughts Endocrine Endocrinology: Denies polydipsia or polyuria EXAM Physical Exam Const Vital Signs: 04/29/21 05:41 Temperature 97.2 F L Temperature Source Temporal Pulse Rate 85 Respiratory Rate 18 Blood Pressure 133/81 H Blood Pressure Mean 98 Pulse Ox 96 Oxygen Delivery Method Room Air Positive well nourished General Appearance ED: NAD; Negative for pallor HEENT Reports normocephalic, head/scalp atraumatic and moist mucous membranes Eyes PERRL and EOMs intact bilaterally Neck no lymphadenopathy and supple Chest Wall inspection of chest normal and palpation of chest normal Resp normal respiratory effort and clear to auscultation bilaterally Auscultation: Negative for rales, rhonchi or wheezes Cardio regular rate and regular rhythm GI normal to inspection, nondistended, normoactive bowel sounds and non-distended Auscultation: normoactive bowel sounds Palpation: soft Narrative: Deferred Extremity normal to inspection Neuro oriented x3 and CN's II-XII intact bilaterally Sensorium / Orientation: alert Motor Exam: strength 5/5 throughout Psych mental status grossly normal Attitude: No agitated Skin no rashes or lesions noted and no wounds General Skin Exam: Negative for jaundice or pallor MDM MDM MDM Narrative Medical decision making narrative: Patient is given Zofran for her nausea. She is monitored in the ED. Apparently she required Narcan prior to the ED. She is alert and awake upon my examination. I do not believe she needs blood work or imaging at this time. I will reevaluate her and see how she feels. Patient still has some nausea but is not vomiting. I feel she is stable for discharge home. Impression: 1. Opioid overdose Discharge Plan Triage Chief Complaint: Overdose ED Provider: Trever Roach Dx/Rx/DC Orders Instructions: ED Overdose, Opiate Primary Care Provider: Kristina Morris Referrals: Kristina oMrris MD [Primary Care Provider] - Disposition Disposition: Home, Self Care
[2021-04-29 07:22] VITALS: BP 126/77; RESP 14; O2SAT 95
== END 2021-04-29 07:25 | disposition home or self-care (01) ==
PROVIDERS: Emergency Provider Student in an Organized Health Care Education/Training Program; PCP Internal Medicine
DX: T40.2X1A Poisoning by other opioids, accidental (unintentional), initial encounter (principal); Y92.9 Unspecified place or not applicable; F17.210 Nicotine dependence, cigarettes, uncomplicated; F14.10 Cocaine abuse, uncomplicated
CPT/HCPCS: 96372; 99284